=== PATIENT | male | born 1985 | race Caucasian/White ===

== ENCOUNTER 2023-04-24 12:56 | Emergency (ER) | payer BC, SELFPAY ==
[2023-04-24 12:58] VITALS: BP 132/108; PULSE 82; RESP 15; TEMP 35.8; O2SAT 99; BMI 27.1
--- NOTE | 2023-04-24 12:58 | NURSING ---
NO OLD EKGS
[2023-04-24 13:37] VITALS: O2SAT 95
--- NOTE | 2023-04-24 13:38 | EDS_ITS ---
HPI History of Present Illness Chief Complaint: Palpitations Narrative Narrative: 37-year-old male presenting with palpitations. States he was at home and noticed his heart rate went up into the 200s. He states that he tried to drive to the urgent care and it dropped to 170s while he was there and now is better. He denies chest pain but he did feel lightheaded and dizzy and had some shortness of breath.. Patient states he had this once before, but it resolved on its own as well. No history of SVT. No cardiac disease or pulmonary disease. Patient feeling otherwise well. Patient does have history of hypertension is on lisinopril 5 mg. [facility] Medical History HTN (hypertension) Home Medications lisinopril 5 mg tablet 5 mg PO DAILY 04/24/23 [History Last Taken Unknown] Allergy/AdvReac Type Severity Reaction Status Date / Time grape Allergy Mild Hives Verified 04/24/23 12:57 Family History Grandmother Breast cancer Grandfather Lung cancer Surgical History H/O wisdom tooth extraction Social History household members: other housing: apartment Smoking Status: Current some day smoker tobacco type: e-cigarettes ROS ROS ED Constitutional Constitutional ED: Denies chills, fever(s) or sweats Eyes Eyes: Denies blurry vision or change in vision ENT ENT ED: Denies ear pain or sore throat Cardiovascular Cardiovascular: Reports palpitations and racing heartbeat; Denies chest pain Respiratory/Chest Respiratory/Chest: Reports dyspnea; Denies cough or sputum Gastrointestinal Gastrointestinal: Denies abdominal pain, constipation, diarrhea, nausea or vomiting Genitourinary Genitourinary ED: Denies dysuria, hematuria or urinary frequency Musculoskeletal Musculoskeletal: Denies arthralgias, myalgias or neck pain Integumentary Denies abscess, Abrasions or rash Neurologic Neurologic: Denies headache(s), paresthesias or weakness Psychiatric Psychiatric: Denies anxiety, depression, suicidal ideation or suicidal thoughts Endocrine Endocrinology: Denies polydipsia or polyuria EXAM Physical Exam Const Vital Signs: 04/24/23 12:58 04/24/23 13:37 04/24/23 13:59 Temperature 96.5 F L Temperature Source Temporal Pulse Rate 82 73 Respiratory Rate 15 16 Blood Pressure 132/108 H 124/87 H Blood Pressure Mean 116 99 Pulse Ox 99 95 98 Oxygen Delivery Method Room Air Room Air Room Air Positive well nourished General Appearance ED: NAD HEENT Reports moist mucous membranes Eyes PERRL and EOMs intact bilaterally MDM MDM MDM Narrative Medical decision making narrative: Patient presenting with tachycardia from home. He is no longer tachycardic. He states he was able to gauge his by his watch. He states he was in the 200s and 170s and then resolved. Differential includes SVT, sinus tachycardia, possibly A-fib, dysrhythmia. Patient has a history. He is not having chest pain he did have shortness of breath and lightheadedness which is resolved. EKG was obtained on my interpretation shows a normal sinus rhythm with a ventricular rate 75 bpm without sign of ischemic change or ectopy. Chest x-ray my interpretation shows no acute process. CBC and BMP unremarkable with exception of a potassium of 3.4. High-sensitivity troponin is 4. Patient counseled on all findings. I did membership counselor him I suspect it was SVT. He is given follow-up with his primary care physician and may need a referral to cardiology. Return precautions were discussed. Impression: 1. Tachycardia 2. Lightheadedness Lab Data Labs: Laboratory Results - last 24 hr 04/24/23 12:40 WBC 5.9 RBC 5.03 Hgb 15.6 Hct 44.1 MCV 87.7 MCH 31.0 MCHC 35.4 RDW Std Deviation 38.6 RDW Coeff of Shawn 12.2 Plt Count 266 MPV 9.1 Immature Gran % (Auto) 0.200 Neut % (Auto) 49.8 Lymph % (Auto) 38.0 Clayton % (Auto) 8.1 Eos % (Auto) 2.7 Baso % (Auto) 1.2 H Absolute Neuts (auto) 3.0 Absolute Lymphs (auto) 2.26 Nucleated RBC % 0 Sodium 141 Potassium 3.4 L Chloride 107 Carbon Dioxide 30.0 Anion Gap 4 L BUN 7 Creatinine 0.93 Estim Creat Clear Calc 121.68 Est GFR (MDRD) Af Amer 118 Est GFR (MDRD) Non-Af 98 BUN/Creatinine Ratio 7.5 L Glucose 90 Calcium 8.7 Troponin I High Sens 4 Radiography Diagnostic Testing: Clinical Impression(s) from Imaging Studies Chest X-Ray 04/24/23 13:48 IMPRESSION: No acute cardiopulmonary disease. Electronically Signed: Jv Forbes MD at 14:18 EDT , Discharge Plan Triage Chief Complaint: Palpitations ED Provider: River Dean Dx/Rx/DC Orders Instructions: ED Understanding Supraventricular Tachycardia (SVT), ED Palpit ations Prescriptions: No Action lisinopril 5 mg tablet 5 mg PO DAILY Patient Comments: Take 1 tablet by mouth once daily. Primary Care Provider: Manjeet Ball Referrals: Manjeet Ball MD [Primary Care Provider] - Disposition Disposition: Home, Self Care
[2023-04-24 13:46] LABS: Absolute Lymphocyte Count 2.26 X10^3/uL (0.83-4.51); Basophil# 0.07 X10^3/uL; Basophil% 1.2 % (0-1); Eosinophil# 0.16 X10^3/uL; Eosinophils% 2.7 % (0-5); Hematocrit 44.1 % (40-54); Hemoglobin 15.6 g/dL (13.0-16.5); Lymphocyte # 2.26 X10^3/ul (0.83-4.51); Mean Corp Hgb Conc 35.4 g/dL (32-36); Mean Corpuscular Volume 87.7 fL (80-94); Mean Platelet Vol. 9.1 fl (6.2-12.0); Monocyte# 0.48 X10^3/uL; Monocyte% 8.1 % (0-10); NRBC Flagged by Analyzer 0 % (0-5); Neutrophil # 2.96 X10^3/uL (2.7-7.7); Neutrophil % 49.8 % (47-70); Platelet Count 266 K/mm3 (150-450); RBC Distribution Width CV 12.2 % (11.6-14.6); RBC Distribution Width SD 38.6 fl (35.1-43.9); Red Blood Count 5.03 M/mm3 (4.6-6.2); White Blood Count 5.9 K/mm3 (4.4-11.0)
--- NOTE | 2023-04-24 13:46 | NURSING ---
NO OLD EKGS
--- NOTE | 2023-04-24 13:48 | RAD_ITS ---
EXAM: XR CHEST, 1 VIEW CLINICAL INDICATION: chest pain TECHNIQUE: Frontal view of the chest. COMPARISON: No relevant prior studies available. FINDINGS: LUNGS AND PLEURAL SPACES: Normal. No consolidation or edema. No pneumothorax. No effusion. HEART: Normal heart size. MEDIASTINUM: No mediastinal or hilar mass. BONES/JOINTS: No acute abnormality. RAD/Chest 1 View (Portable) IMPRESSION: No acute cardiopulmonary disease. Electronically Signed: Jv Forbes MD at 14:18 EDT ,
[2023-04-24] MEDS: Aspirin 81 MG TAB.CHEW 324 MG PO (13:58)
[2023-04-24 13:59] VITALS: BP 124/87; PULSE 73; RESP 16; O2SAT 98
[2023-04-24 14:04] LABS: Anion Gap 4 (5-15); BUN 7 mg/dL (7-18); BUN/Creat Ratio 7.5 RATIO (10-20); Calcium,Total 8.7 mg/dL (8.5-10.1); Chloride 107 mmol/L (98-107); Creatinine, Serum 0.93 mg/dL (0.70-1.30); EST Glomerular Filtration Rate 98 mL/min (>60); Est Glom Filt Rate - Afr Amer 118 mL/min (>60); Estimated Creatinine Clearance 121.68 ml/min; Glucose 90 mg/dL (74-106); Potassium 3.4 mmol/L (3.5-5.1); Sodium Level 141 mmol/L (136-145); Troponin-I HS 4 pg/mL (3.0-78.0)
[2023-04-24 14:57] VITALS: BP 113/81; PULSE 62; RESP 13; O2SAT 97
[2023-04-24 15:14] VITALS: BP 113/81; PULSE 61; RESP 15; O2SAT 100
== END 2023-04-24 15:18 | disposition home or self-care (01) ==
PROVIDERS: Emergency Provider Student in an Organized Health Care Education/Training Program; PCP Family Medicine; Visit Provider Student in an Organized Health Care Education/Training Program
DX: R00.0 Tachycardia, unspecified (principal); R42 Dizziness and giddiness; R06.02 Shortness of breath; I10 Essential (primary) hypertension; F17.290 Nicotine dependence, other tobacco product, uncomplicated; Z79.899 Other long term (current) drug therapy
CPT/HCPCS: 71045; 80048; 84484; 85025; 93005; 99285

== ENCOUNTER → 2024-05-15 | Outpatient (CLI) | payer BC, SELFPAY ==
--- NOTE | 2024-05-15 14:16 | ECHOD_ITS ---
Version 2 Reason For Study: bicuspid av Procedure This was a 2D Doppler, Color Flow transthoracic echocardiogram. Exam performed in department. Left Ventricle Normal LV size. Left ventricular systolic function is normal. The left ventricular ejection fraction is 65 %. No regional wall motion abnormalities noted. Right Ventricle Normal RV size. Normal systolic function. Atria Normal left atrium. Normal right atrium. Mitral Valve Normal mitral valve. Tricuspid Valve Normal tricuspid valve. Mild (1+) tricuspid valve insufficiency. Pulmonary artery systolic pressure is 28 mmHg. Aortic Valve Bicuspid aortic valve. Mild (1+) eccentric aortic valve insufficiency. Pulmonic Valve Normal pulmonic valve. Great Vessels Moderately dilated aortic root. The pulmonary artery is normal size. Normal inferior vena cava. Pericardium/Pleural No pericardial effusion. Medication 22 gauge I.V. with prn adaptor inserted into left arm. Performed a rapid injection of agitated mix of 9 cc saline and 1cc air to assess for atrial septal defect. MMode/2D Measurements & Calculations LVIDd: 5.1 cm IVSd: 1.1 cm LVOT diam: 2.7 cm LVIDs: 3.0 cm LVPWd: 0.88 cm RVDd: 3.1 cm FS: 40.9 % LVOT area: 5.9 cm2 asc Aorta Diam: 4.5 cm LAV(MOD-sp4): 14.3 ml LVAd ap4: 36.7 cm2 LVLd ap4: 9.4 cm EDV(MOD-sp4): 116.6 ml EDV(sp4-el): 122.0 ml LVAs ap4: 18.7 cm2 LVLs ap4: 7.7 cm ESV(MOD-sp4): 38.5 ml ESV(sp4-el): 38.4 ml EF(MOD-sp4): 67.0 % EF(sp4-el): 68.6 % SV(MOD-sp4): 78.1 ml SV(sp4-el): 83.6 ml LA A4 area: 8.8 cm2 RA A4 area: 10.7 cm2 Time Measurements MV dec time: 0.27 sec Doppler Measurements & Calculations MV E max guille: 86.3 cm/sec Lat Peak E' Guille: 20.0 cm/sec Med Peak E' Guille: 11.6 cm/sec MV A max guille: 60.2 cm/sec E/E' lat: 4.3 E/E' med: 7.5 MV E/A: 1.4 MV dec slope: 318.1 cm/sec2 Ao V2 max: 138.4 cm/sec AI max guille: 530.1 cm/sec Ao max P.7 mmHg AI max P.4 mmHg Ao V2 mean: 97.0 cm/sec AI dec slope: 441.3 cm/sec2 Ao mean P.2 mmHg AI P1/2t: 351.9 msec Ao V2 VTI: 25.6 cm AV (velocity ratio): 0.85 DECLAN(I,D): 5.0 cm2 DECLAN(V,D): 4.5 cm2 LV V1 max: 105.8 cm/sec SV(LVOT): 127.5 ml PA V2 max: 108.5 cm/sec LV V1 max P.5 mmHg PA max PG (full): 1.3 mmHg LV V1 mean P.4 mmHg LV V1 mean: 73.7 cm/sec LV V1 VTI: 21.7 cm TR max guille: 249.7 cm/sec TR max P.9 mmHg ECHO/Echo Complete Interpretation Summary Normal LV size. Left ventricular systolic function is normal. The left ventricular ejection fraction is 65 %. Bicuspid aortic valve. Moderately dilated aortic root. Ordering Physician: Adams Barbour Referring Physician: Adams Barbour Performed By: Shawnee Prajapati and Student
== END | disposition home or self-care (01) ==
LOC: CVS 14:16
PROVIDERS: PCP Family Medicine; Referring Provider Nurse Practitioner Family; Visit Provider Nurse Practitioner Family
DX: Q23.1 Congenital insufficiency of aortic valve (principal); I10 Essential (primary) hypertension
CPT/HCPCS: 93306